=== PATIENT | female | born 1970 | race Caucasian/White ===

== ENCOUNTER 2021-08-17 01:47 | Day surgery (SDCO) | payer OTHER ==
[~2021-08-17] VITALS: Ht 160 cm; Wt 70.0 kg
[2021-08-17 02:49] LABS: BASOPHIL 0.9 % (0-2); EOSINOPHIL 2.8 & (0-5); HCT 43.3 % (37.0-47.0); HGB 15.1 g/dl (12.5-16.0); LYMPHOCYTE 26.8 % (15-48); MCH 32.6 pg (25.0-31.0); MCHC 34.9 g/dL (32.0-36.0); MCV 93.5 fL (78.0-100.0); MONOCYTE 10.4 % (0-12); MPV 10.4 fL (6.0-9.5); NEUTROPHIL 58.9 % (41-80); PLT 177 K/uL (150-400); RBC 4.63 M/uL (4.20-5.40); RDW 12.6 % (11.5-14.0); WBC 4.25 K/uL (4.0-10.5)
[2021-08-17 03:24] LABS: BUN/CREAT RATIO (CALC) 20.3 RATIO; CREATININE 0.64 mg/dL (0.51-0.95); POTASSIUM 4.1 mmol/L (3.5-5.1)
[2021-08-17 06:14] LABS: FT4 (FREE T4) 1.1 ng/dL (0.76-1.46)
[2021-08-17] MEDS ORDERED: NYSTATIN 112 TSP/BTL SSP (06:20)
[2021-08-18 07:08] LABS: BASOPHIL 0.6 % (0-2); EOSINOPHIL 3.2 % (0-5); HCT 39.6 % (37.0-47.0); HGB 13.6 g/dl (12.5-16.0); LYMPHOCYTE 26.4 % (15-48); MCH 32.6 pg (25.0-31.0); MCHC 34.3 g/dL (32.0-36.0); MONOCYTE 8.5 % (0-12); MPV 9.9 fL (6.0-9.5); NEUTROPHIL 61.3 % (41-80); NRBC 0; PLT 146 K/uL (150-400); RBC 4.17 M/uL (4.20-5.40); RDW 12.7 % (11.5-14.0)
[2021-08-18 07:31] LABS: ALBUMIN 3.3 g/dL (3.4-5.0); BILIRUBIN - TOTAL 0.5 mg/dL (0.2-1.0); CREATININE 0.67 mg/dL (0.51-0.95); GLOBULIN (CALCULATION) 2.9 g/dL; POTASSIUM 3.9 mmol/L (3.5-5.1); TOTAL PROTEIN 6.2 g/dL (6.4-8.2)
[2021-08-19 09:09] LABS: HCT 40.1 % (37.0-47.0); MCHC 34.9 g/dL (32.0-36.0); MCV 94.6 fL (78.0-100.0); MPV 10.3 fL (6.0-9.5); RBC 4.24 M/uL (4.20-5.40); RDW 12.9 % (11.5-14.0); WBC 3.7 K/uL (4.0-10.5)
[2021-08-19 09:31] LABS: BUN/CREAT RATIO (CALC) 12.3 RATIO; CREATININE 0.65 mg/dL (0.51-0.95); POTASSIUM 4.2 mmol/L (3.5-5.1)
--- NOTE | 2021-08-19 19:15 | NUR ---
[facility] HERE TO TRANSFER TO [facility]. REPORT GIVEN AND TRANSFER PAPERWORK. ZOFRAN 4MG IV FOR NAUSEA AND VOMITING PREVENTION. gENERAL CONDITION STABLE AT TIME OF TRANSFER.
== END 2021-08-19 19:19 | disposition other institution (70) ==
LOC: FER 01:47 → FMS 04:26
PROVIDERS: Emergency Medicine Emergency Medical Services; Internal Medicine; Nurse Practitioner; ADMIT Internal Medicine
DX: R13.10 Dysphagia, unspecified (principal); U07.1 COVID-19; R51.9 Headache, unspecified; E86.0 Dehydration; B37.0 Candidal stomatitis; Z88.6 Allergy status to analgesic agent
CPT/HCPCS: 36415; 70450; 70492; 70553; 71250; 80048; 80053; 84439; 84443; 85025; 93005; 94010; G0378; J1450; J2405; J7030; Q9967; U0002